=== PATIENT | male | born 1995 | race Native Hawaiian/Other Pacific Islander ===

== ENCOUNTER 2024-11-29 17:31 | Emergency (ER) | payer OTHER, SELFPAY ==
[2024-11-29 17:38] VITALS: BP 171/85; PULSE 105; RESP 18; TEMP 37; O2SAT 99; BMI 36.2
--- NOTE | 2024-11-29 21:24 | ED.GENADULT ---
HPI - General Adult General Chief complaint: Back Injury/Pain Stated complaint: Lower back pain dadiates down leg left side Time Seen by Provider: 11/29/24 21:23 History of Present Illness HPI narrative: Patient presents to the emergency department complaining of lower back pain . PAtient states this pain started on thursday night when he stood up out of a chair. PAtient initially experienced sharp low back pain and it was debilitating. PAtient laid in bed most of the day yesterday due to the pain. As the day went on the pain got better and he was able to at least get up and walk. Pain has continued to get better. 29-year-old man presenting to the emergency department with his mother with concern of back pain. 2 days ago started with some radiating pain down the left leg. An achy sharp pain. Never past the knee. Now also having some sensation in the right. It has lessened now. Describes some pain as he gestures to the left sacroiliac joint as well. Back in September a was doing some lifting lifts and squats and felt a pinch of pain. Has been hesitant since. Related Data Home Medications ?Medication ?Instructions ?Recorded ?Confirmed No Known Home Medications 11/29/24 11/29/24 Allergies Allergy/AdvReac Type Severity Reaction Status Date / Time No Known Drug Allergies Allergy Verified 11/29/24 17:44 Review of Systems Status of ROS: Reports: 6 or more systems reviewed and unremarkable except as noted in History and below [facility] Social History Smoking Status: Never smoker Do you use any of these nicotine containing products: None How often do you have a drink containing alcohol: never AUDIT-C Alcohol total score: 0 Non-prescribed substance use: denies use Exam Narrative: Exam Narrative: Pleasant. Good energy. Transitioning without significant difficulty. Skin is warm and dry. No swelling or redness. Little uncomfortable to palpation below the left greater than right sacral iliac joint. Intact strength. 1+ and equal lower extremity DTRs. Negative Jennifer's. Negative straight leg raise. Causes some pain in the back particularly on the right though I think. Const: Vital Signs, click to edit/add: Vital Signs - 24 hr 11/29/24 17:38 Temperature 98.6 F Pulse Rate [Right Pulse Oximeter] 105 H Respiratory Rate 18 Blood Pressure [Ri ght Upper Arm] 171/85 H Pulse Oximetry 99 Oxygen Delivery Me thod Room Air Documenting provider has reviewed patient's vital signs: yes Course Vital Signs Vital signs: Initial Vital Signs Temperature 98.6 F 11/29/24 17:38 Temperature Source Temporal Artery Scan 11/29/24 17:38 Pulse Rate 105 H 11/29/24 17:38 Pulse Rhythm Regular 11/29/24 17:38 Pulse Strength 3+ Normal 11/29/24 17:38 Respiratory Rate 18 11/29/24 17:38 Blood Pressure 171/85 H 11/29/24 17:38 Blood Pressure Mean 113 H 11/29/24 17:38 Blood Pressure Position Sitting 11/29/24 17:38 Pulse Oximetry 99 11/29/24 17:38 Oxygen Delivery Method Room Air 11/29/24 17:38 Vital Signs Temperature 98.6 F 11/29/24 17:38 Pulse Rate 105 H 11/29/24 17:38 Respiratory Rate 18 11/29/24 17:38 Blood Pressure 171/85 H 11/29/24 17:38 Pulse Oximetry 99 11/29/24 17:38 Oxygen Delivery Method Room Air 11/29/24 17:38 Temperature 97.6 F 11/29/24 22:01 Pulse Rate 90 11/29/24 22:01 Respiratory Rate 18 11/29/24 22:01 Blood Pressure 145/90 H 11/29/24 22:01 Pulse Oximetry 97 11/29/24 22:01 Oxygen Delivery Method Room Air 11/29/24 22:01 Medical Decision Making MDM Narrative Medical decision making narrative: Does seem to be describing some degree of sciatica. With the described bilateral nature of it I would have concern more about evolution of lower lumbar disc issue. Also seems to be describing pain about the sacral iliac joint. I do not think any imaging I have available here today would be useful in a rather young man without trauma otherwise. Would spend some time focusing on core strength. Course of steroid might be beneficial. I am worried might have a more significant flare of pain requiring stronger pain medication. We discussed options. See patient discharge plan for further discussion You seem to have components of both sciatica as well as a left sacroiliac joint pain. See handouts on sciatica/herniated disc and sacroiliac pain. Prescribing prednisone and cyclobenzaprine from [facility]. Would consider also taking up to 800 mg of ibuprofen or up to 1000 mg of acetaminophen per dose as needed. Alternative to ibuprofen might be up to 500 mg naproxen 2 times daily. Keep working on strengthening your core. Discharge Plan Discharge Clinical Impression: Radicular low back pain Patient Disposition: Home, Self-Care Condition: Stable Additional Instructions: You seem to have components of both sciatica as well as a left sacroiliac joint pain. See handouts on sciatica/herniated disc and sacroiliac pain. Prescribing prednisone and cyclobenzaprine from [facility]. Would consider also taking up to 800 mg of ibuprofen or up to 1000 mg of acetaminophen per dose as needed. Alternative to ibuprofen might be up to 500 mg naproxen 2 times daily. Keep working on strengthening your core. Prescriptions: No Action No Known Home Medications Stand Alone Forms: [employer] Info Instructions
[2024-11-29 22:01] VITALS: BP 145/90; PULSE 90; RESP 18; TEMP 36.4; O2SAT 97
--- OUTSIDE RECORDS SUMMARY | 2024-11-29 22:03 | XMS_ITS | Clinical Summary ---
Author Organization [facility] Address [address] [place] [id number] Care Team Providers Care Bag Bundler Name Role Phone Edward Valadez MD Primary Care Provider Allergies No known active allergies Medications No known medications Active Problems Problem Noted Date Diagnosed Date Environmental allergies possibly due to family d og 11/10/2012 Congenital pes planus 06/15/2007 Immunizations Immunization Administration Dates Next Due DTaP 06/20/2002, 8,1997,05/09,1997 HIB-HepB (Comvax) 1997,1997,03/08/19 97 HPV 9 (Gardasil 9) 08/03/2023 Human Papilloma Virus Vaccine 04/19/2014 Inactivated Polio Vaccine 06/20/2002,1997, 1997 MENINGOCOCCAL VACCINE 2 VIAL [id number] (MENVEO) 04/19/2014,10/16/2010 MMR 06/20/2002,01/10/1998 Meningococcal Vaccine (Menactra) 10/16/2010 Oral Polio Vaccine 09/04/1998 Tdap 08/03/2023,03/07/2008 Varicella Vaccine 05/15/2009,01/10/1998 Family History Medical History Relation Name Comments Cancer-pancreatic Maternal Grandfather Diabetes type II Maternal Grandfather Diabetes type II Maternal Grandmother Hyperlipidemia Maternal Grandmother Relation Name Status Comments Brother Alive Maternal Grandfather Maternal Grandmother Sister 1 Alive Sister 2 Alive Sister 3 Alive Social History Tobacco Use Types Packs/Day Years Used Date Smoking Tobacco: Never Smokeless Tobacco: Never Tobacco Cessation:Counseling Given: Yes Alcohol Use Standard Drinks/Week Comments No 0 (1 standard drink = 0.6 oz pur e alcohol) PHQ-2 Answer Date Recorded PHQ-2 TOTAL SCORE 0 08/03/2023 Social Connections Answer Date Recorded Do you often feel lonely or isolated from those around you? 0 08/03/2023 Financial Resource Strain Answer Date R ecorded Difficulty of Paying Living Expenses 3 08/03/2023 Difficulty of Paying Living Expenses Not on file 08/03/2023 Food Insecurity Answer Date Recorded Do you worry your food will run out before you are able to buy more? 1 08/03/2023 Transportation Needs Answer Date Record ed Does lack of transportation keep you from medica l appointments? 1 08/03/2023 Does lack of transportation keep you from work, meetings or getting things that you need? 1 08/03/2023 Housing Stability Answer Date Recorded What is your housing situation today? 1 08/03/2023 Sex and Gender Information Value Date Recorded Sex Assigned at Not on file Legal Sex Male 5:27 AM [employer] Gender Identity Not on file Sexual Orientation Not on file Obstetrics History Last Filed Vital Signs Vital Sign Reading Time Taken Comments Blood Pressure 120/80 08/03/2023 3:49 PM [employer] Pulse 68 08/03/2023 3:49 PM [employer] Temperature 36.7 C (98.1 F) 04/19/2014 3:47 PM CDT Respiratory Rate - - Oxygen Saturation 99% 05/02/2015 3:29 PM CDT Inhaled Oxygen Concentration - - Weight 120.2 kg (265 lb) 08/03/2023 3:49 PM [employer] Height 176.5 cm (5' 9.5) 08/03/2023 3:49 PM [employer] Body Mass Index 38.57 08/03/2023 3:49 PM [employer] Plan of Treatment Health Maintenance Due Date Last Done Comments COVID-19 vaccine series ( season) 2024 01/25/2021, 01/04/2021 Influenza Vaccine (#1) 2024 BMI (ht and wt on same day) for age 18+ 08/03/2024 08/03/2023 Depression screening for age 12+ 08/03/2024 08/03/2023 Tetanus booster 08/03/2033 08/03/2023, 03/07/2008 HIV for age 15-65 Completed 08/03/2023 Hepatitis C screening for ag e 18-79 Completed 08/03/2023 Tdap Completed 08/03/2023, 03/07/2008 Pneumococcal series for age 6-49 Aged Out No longer eligible b ased on patient's age to complete this topic Procedures Procedure Name Priority Date/Time Associated Diagnosis Comments ANTI HIV 1/2 Routine 08/03/2023 4:36 PM [employer] STD exposure ANTI HCV Routine 08/03/2023 4:36 PM [employer] STD exposure from Last 3 Months or Most Recently Relevant to Health Maintenance Results * ANTI HCV (08/03/2023 4:36 PM [employer]) HEPATITIS C ANTIBODY Non-Reacti ve Non-React nolan 08/03/2023 10:48 PM [employer] [facility] [employer] [facility] Comment:Please note, per www .CDC.gov: If a patient is known to be at high risk of HCV infection, or is symptomatic, and the physician's suspicion of HCV infection is high, HCV RNA testing is often employed and is of diagnostic value, even after an initial negative anti-HCV test result. Blood BLOOD SPECIMEN / Unknown Venipuncture / Unknown 08/03/2023 4:36 PM [employer] 08/03/2023 4:42 PM [employer] us Edward Valadez MD SEND OUTS Final R esult [facility] [address] [place] [address], * ANTI HIV 1/2 (08/03/2023 4:36 PM [employer]) HIV-1/HIV-2 SCREEN Non-Reacti ve Non-Reacti ve 08/03/2023 10:57 PM [employer] [facility] Comment:HIV-1 p24 and HIV-1/ HIV-2 Ab Not Detected. Blood BLOOD SPECIMEN / Unknown Venipuncture / Unknown 08/03/2023 4:36 PM [employer] 08/03/2023 4:42 PM [employer] Edward Valadez MD SEND OUTS Final R esult [facility] [address] [place] [address], from Last 3 Months or Most Recently Relevant to Health Maintenance [facility] Care Teams Bag Bundler Relationship Specialty [place] [id number] [place] [address] PCP - General Family Practice 08/03/23
== END 2024-11-29 22:17 | disposition home or self-care (01) ==
LOC: ED 22:01
PROVIDERS: Emergency Provider Family Medicine
DX: M54.16 Radiculopathy, lumbar region (principal)
CPT/HCPCS: 99283; 99284